=== PATIENT | male | born 1955 | race Caucasian/White ===

== ENCOUNTER 2016-10-16 11:46 | Day surgery (SDC) | payer OTHER ==
[2016-10-14 16:08] VITALS: BMI 27.3
[2016-10-16] MEDS ORDERED: DEXAMETHASONE SOD PHOSPHATE 4 MG/1 ML VIAL ONE ×2 (13:31→19:29)
[2016-10-16] MEDS ORDERED: PROPOFOL 20 ML ONE ×2 (13:31→19:11)
[2016-10-16] MEDS ORDERED: KETOROLAC TROMETHAMINE 30 MG/1 ML VIAL ONE (13:31)
[2016-10-16] MEDS ORDERED: ONDANSETRON 4 MG/2 ML VIAL ONE (13:31)
[2016-10-16] MEDS ORDERED: ceFAZolin SODIUM 1 GM VIAL ONE ×2 (13:31→19:22)
[2016-10-16] MEDS ORDERED: MIDAZOLAM HCL 2 MG/2 ML SINGLE DOSE VIAL ONE ×2 (13:31→19:11)
[2016-10-16] MEDS ORDERED: SODIUM CHLORIDE 0.9% P/F 10 ML VIAL IJ ONE ×2 (13:31→19:36)
--- NOTE | 2016-10-16 13:34 | HP ---
History & Physical Update - History History: No Change - Physical Physical: No Change - Assessment Assessment: No Change - Plan Plan: No Change
[2016-10-16] MEDS ORDERED: LISINOPRIL 20 MG TABLET (FP) PO ONE (13:36)
--- NOTE | 2016-10-16 13:41 | OP ---
Operative Note - Note: Operative Date: 10/16/16 Pre-Operative Diagnosis: BPH w LUTS, urinary retention Operation: bipolar TURP Findings: 6 cm prostatic urethra w severe bilobar occlusion Post-Operative Diagnosis: Same as Pre-op Surgeon: Colin Damon Anesthesiologist/SCHOOL ATTENDANCE SECRETARY: Murtaza Hassan Jr. Anesthesia: Spinal Specimens Removed: prostate tissue Drains & Tubes with Location: [address] 30 ml balloon aiken Operative Report Dictated: Yes
[2016-10-16] MEDS ORDERED: ceFAZolin SODIUM 1 GM VIAL IVPB ONE ×2 (13:52→19:25)
[2016-10-16] MEDS ORDERED: OXYCODONE/APAP 5/325MG COMBO TABLET PO PRN (15:09)
[2016-10-16] MEDS ORDERED: oxyCODONE HCL 5 MG TABLET PO PRN ×2 (15:28→17:08)
[2016-10-16] MEDS ORDERED: metFORMIN HCL 500 MG TABLET (FP) PO SCH (16:30)
--- NOTE | 2016-10-16 16:45 | OP ---
DATE OF OPERATION: 10/16/2016 PREOPERATIVE DIAGNOSIS: Benign prostatic hypertrophy, urinary retention. POSTOPERATIVE DIAGNOSIS: Benign prostatic hypertrophy, urinary retention. PROCEDURE: Bipolar transurethral resection of the prostate. SURGEON: Colin Hickey MD PROCUREMENT BUYER: None. ANESTHESIA: Spinal. ANESTHESIOLOGIST: Murtaza Hassan Jr., CRNA SPECIMENS: Prostate chips. CULTURES: None. DRAINS: 24-Colombian 3-way Romano catheter, 30-mL balloon. ESTIMATED BLOOD LOSS: Negligible. COMPLICATIONS: None. PROCEDURE DESCRIPTION: Patient was brought in the operating room, placed on the operating table in the supine position. After administration of spinal anesthesia, the patient was placed in the dorsal lithotomy position. Intravenous antibiotics were administered. Indwelling Romano catheter was removed, and the genitals and perineum were prepped and draped in usual sterile manner. The Olympus continuous flow resectoscope sheath with visualizing obturator was inserted into the anterior urethra under direct vision. The anterior urethra was normal. Prostatic urethra measured approximately 6 cm in length and demonstrated severe Bilobar occlusion. The bladder was entered and thoroughly inspected. There were no foreign bodies, tumors, stones, inflammation. Both ureteral orifices were in their usual location but were close to the bladder neck with clear efflux bilaterally. Now, the working element of the resectoscope was inserted, and TUR was performed in the standard fashion by first creating a groove in the left lateral lobe of the prostate at the 2 o'clock position from the area of the bladder neck to the verumontanum, down to the level of the capsular fibers. The left lateral lobe of the prostate was then sequentially resected from the 2 o'clock to the 6 o'clock position from the area of the bladder neck to the verumontanum, down to the level of the capsular fibers. The right lateral lobe of the prostate was then resected in a similar manner. The roof and the floor of the prostate were resected as well down to capsular fibers. After all obstructive tissue from the bladder neck and the verumontanum was resected down to capsular fibers, all resected prostatic tissue was removed from the bladder using Ellik evacuator. Hemostasis was assured with electrocautery. The bladder was left full, instruments removed, and a 24-Colombian 3-way Romano catheter was inserted into the bladder, 30 mL placed in the balloon, placed on continuous bladder irrigation, return clear. Tolerated the procedure well, transferred to recovery room in stable condition. COLIN HICKEY M.D. [id number]
[2016-10-16] MEDS ORDERED: ONDANSETRON 4 MG/2 ML VIAL IVPUSH PRN ×2 (17:08→19:05)
[2016-10-16 17:40] LABS: MCH 29.1 pg (25.7-33.7); MCHC 34.1 g/dl (32.0-35.9); MEAN CELL VOLUME 85.4 fl (80-96); PLATELET COUNT 178 K/MM3 (134-434); RDW 13.9 % (11.9-15.9); WHITE BLOOD COUNT 7.8 K/mm3 (4.0-10.0)
[2016-10-16] MEDS: LACTATED RINGERS SOLUTION 1,000 ML IV SCH (18:05)
--- NOTE | 2016-10-16 19:01 | OP ---
Operative Note - Note: Operative Date: 10/16/16 Pre-Operative Diagnosis: gross hematuria, prostatic hemorrhage Operation: cystoscopy and fulguration of bleeding, evacuation of clots Findings: prostatic hemorrhage Post-Operative Diagnosis: Same as Pre-op Surgeon: Colin Damon Anesthesiologist/RECREATION PROGRAM COORDINATOR: Chris Leon Anesthesia: General Drains & Tubes with Location: [address] 30 ml balloon aiken
--- NOTE | 2016-10-16 19:03 | PN ---
Progress Note (short form) - Note Progress Note: pt developed gross hematuria post op, despite cbi and aiken on traction. will rtor for cysto fulguration of prostatic hemorrhage
[2016-10-16] MEDS ORDERED: PROMETHAZINE HCL 25 MG/1 ML VIAL IVPUSH PRN (19:05)
[2016-10-16] MEDS ORDERED: LACTATED RINGERS SOLUTION 1,000 ML IV SCH (19:15)
[2016-10-16] MEDS ORDERED: PHENYLEPHRINE HCL 10 MG/1 ML SINGLE DOSE VIAL ONE (19:36)
[2016-10-16] MEDS ORDERED: ATORVASTATIN CA 20 MG TABLET (FP) PO SCH (22:00)
[2016-10-16] MEDS: ACETAMINOPHEN 325 MG TABLET (FP) PO PRN (23:25)
[2016-10-17] MEDS: CEFAZOLIN 1 GM/D5W 50 ML IVPB SCH ×2 (01:12→12:06)
[2016-10-17] MEDS: LACTATED RINGERS SOLUTION 1,000 ML IV SCH (01:16)
[2016-10-17 07:19] LABS: MCH 29.7 pg (25.7-33.7); MCHC 34.5 g/dl (32.0-35.9); MEAN CELL VOLUME 85.9 fl (80-96); MEAN PLT VOLUME 8.6 fl (7.5-11.1); PLATELET COUNT 150 K/MM3 (134-434); RDW 14.3 % (11.9-15.9)
[2016-10-17 08:16] LABS: CALCIUM 8.1 mg/dL (8.5-10.1); CREATININE 0.8 mg/dL (0.7-1.3)
[2016-10-17] MEDS ORDERED: TAMSULOSIN HCL 0.4 MG CAP.ER.24H (FP) PO SCH (08:30)
[2016-10-17] MEDS ORDERED: FINASTERIDE 5 MG TABLET (FP) PO SCH (10:00)
[2016-10-17] MEDS ORDERED: LISINOPRIL 20 MG TABLET (FP) PO SCH (10:00)
[2016-10-17] MEDS ORDERED: amLODIPine BESYLATE 5 MG TABLET (FP) PO SCH (10:00)
[2016-10-17] MEDS: ACETAMINOPHEN 325 MG TABLET (FP) PO PRN (10:57)
[2016-10-17 11:12] VITALS: BP 114/71; PULSE 91; TEMP 97.7
--- NOTE | 2016-10-17 11:17 | OP ---
DATE OF OPERATION: 10/16/2016 PREOPERATIVE DIAGNOSIS: Prostatic hemorrhage and gross hematuria. POSTOPERATIVE DIAGNOSIS: Prostatic hemorrhage and gross hematuria. PROCEDURE: Cystoscopy, fulguration of bleeding, evacuation of clots. SURGEON: Colin Damon MD GRINDER HAND: None. ANESTHESIA: General via laryngeal mask. ANESTHESIOLOGIST: Chris Leon MD SPECIMENS: None. CULTURES: None. DRAINS: A 24-Spanish 3-way Romano catheter, 30-mL balloon. ESTIMATED BLOOD LOSS: Negligible. COMPLICATIONS: None. DESCRIPTION OF PROCEDURE: The patient was brought into the operating room and placed on the operating room table in a supine position. After administration of general anesthesia via laryngeal mask, intravenous antibiotics were administered, and the patient was placed in the dorsal lithotomy position. The perineum and genitals were prepped and draped in the usual sterile manner after removing indwelling Romano catheter. The resectoscope sheath was visualized with the obturator. It was inserted near the anterior urethra under direct vision. The prostatic urethra was entered and demonstrated multiple clots. The bladder was entered and demonstrated multiple clots. All clots were removed using the evacuator. Hemostasis was assured with the PlasmaButton. Once hemostasis was assured and all clots were removed from the bladder, the bladder was left full and the instrument removed. A 24-Spanish 3-way Romano catheter was inserted in the bladder, 30 mL placed in the balloon. Placed on continuous bladder irrigation on traction. Returned minimally blood tinged. Tolerated the procedure well and was transferred to recovery room in stable condition. Amauri [id number]
--- NOTE | 2016-10-17 11:21 | PN ---
Progress Note (short form) - Note Progress Note: Anesthesia POD#! S/P TURP Cystoscopy and stent under GA Patient is awake,no N/V,pain under control VSS A/P No complications to anesthesia seen. Stacey Dejesus.
--- NOTE | 2016-10-20 13:37 | PATH ---
Surgical Pathology Report Patient Name: CHRISTINE JOSHUA [facility]. Rec. #: [id number] /Age/Gender: 1955 (Age: 61) / M Account: [id number] Location: [facility] SURGICAL Taken: 10/16/2016 Received: 10/17/2016 Reported: 10/20/2016 Physicians: Colin Damon M.D. Specimen(s) Received PROSTATE CHIPS Clinical History Benign prostate hyperplasia Final Diagnosis PROSTATE, TUR: BENIGN PROSTATE TISSUE WITH GLANDULAR AND STROMAL HYPERPLASIA AND ACUTE AND CHRONIC INFLAMMATION; BENIGN UROTHELIAL MUCOSA WITH CYSTITIS GLANDULARIS. Electronically Signed Devin Ho M.D. Gross Description Received in formalin, labeled "resected prostate" is a 32 g, 13.0 x 10.5 x 0.7 cm aggregate of multiple desai, irregular, firm to rubbery portions of tissue, consistent with prostate chips. Mottle Lay Up Operator portions are submitted in 13 cassettes. /10/17/2016 saudi10/17/2016
== END 2016-10-17 11:29 | disposition home or self-care (01) ==
LOC: JASU-SURG 11:46 → J6S 22:25 → JASU-SURG 10-17 11:29
PROVIDERS: ATTEND Urology
PROC: 0V508ZZ Destruction of Prostate, Via Natural or Artificial Opening Endoscopic (ICD-10-PCS; 2016-10-16)
PROC: 0TCD8ZZ Extirpation of Matter from Urethra, Via Natural or Artificial Opening Endoscopic (ICD-10-PCS; 2016-10-16)
PROC: 0VT08ZZ Resection of Prostate, Via Natural or Artificial Opening Endoscopic (ICD-10-PCS; principal; 2016-10-16 13:30)
DX: N40.1 Benign prostatic hyperplasia with lower urinary tract symptoms (principal); R33.8 Other retention of urine; N42.1 Congestion and hemorrhage of prostate; R31.0 Gross hematuria
CPT/HCPCS: 36415; 80048; 85027; 88305-TC; 94760